=== PATIENT | female | born 1995 | race Caucasian/White ===

== ENCOUNTER 2018-11-26 00:10 | Emergency (ER) | payer BC, MEDICAID ==
[~2018-11-26] VITALS: Ht 167.6 cm; Wt 70.0 kg
[2018-11-26 01:24] LABS: CHLORIDE 104 mEq/L (98-107)
[2018-11-26 01:34] LABS: B-HCG QUANTITATIVE 4 mIU/mL (<3)
[2018-11-26 01:35] LABS: BASOPHILS % 0.3 % (0.0-2.0); EOSINOPHILS % 0.8 % (0.0-5.0); HEMATOCRIT. 36.2 % (36.0-48.0); HEMOGLOBIN. 12.3 g/dL (12.0-16.0); MEAN CORPUSCULAR VOLUME 82.2 fL (81.0-99.0); MEAN PLATELET VOLUME 8.6 fl (7.4-10.4); MONOCYTES % 4.7 % (2.0-8.0); NEUTROPHILS % 80.2 % (40.0-76.0); PLATELET 247 x1000/uL (130-400); RED CELL DISTRIBUTION WIDTH 13.5 % (11.6-14.6)
[2018-11-26 02:27] VITALS: BP 121/86
== END 2018-11-26 02:27 | disposition home or self-care (01) ==
LOC: ER 00:10 → EDBD 00:10 → ER 02:27
DX: O03.9 Complete or unspecified spontaneous abortion without complication (principal); Z3A.30 30 weeks gestation of pregnancy
CPT/HCPCS: 36415; 76856; 80053; 84702; 85025; 86850; 86900; 86901; 88305; 99284; Z7610